=== PATIENT | male | born 1945 | race Caucasian/White ===

== ENCOUNTER 2020-09-29 10:19 | Emergency (ER) | payer MEDICARE, OTHER ==
[~2020-09-29] VITALS: Ht 170.2 cm; Wt 73.3 kg
[2020-09-29 10:48] VITALS: BP 148/84
--- NOTE | 2020-09-29 11:30 | NUR ---
PT AMBULATORY TO ROOM FROM LOBBY.
[2020-09-29] MEDS ORDERED: FLUORESCEIN OPHTHALMIC 1 MG STRIP ONE (12:26)
[2020-09-29] MEDS ORDERED: PROPARACAINE OPHTH 0.5%, 15ML ONE (12:26)
[2020-09-29] MEDS ORDERED: PROPARACAINE OPHTH 0.5%, 15ML EACHEYE ONE (12:30)
[2020-09-29] MEDS ORDERED: FLUORESCEIN OPHTHALMIC 1 MG STRIP EACHEYE ONE (12:30)
== END 2020-09-29 13:11 | disposition home or self-care (01) ==
LOC: ED 12:35
DX: S05.02XA Injury of conjunctiva and corneal abrasion without foreign body, left eye, initial encounter (principal); X58.XXXA Exposure to other specified factors, initial encounter; Y93.89 Activity, other specified; Y92.89 Other specified places as the place of occurrence of the external cause; Y99.8 Other external cause status
CPT/HCPCS: 99283